=== PATIENT | male | born 1995 | race Caucasian/White ===

== ENCOUNTER 2025-01-11 20:41 | Emergency (ER) | payer OTHER ==
[~2025-01-11] VITALS: Ht 165.1 cm; Wt 114.0 kg
[2025-01-11 20:45] VITALS: BP 120/80; PULSE 101; RESP 16; TEMP 37.1; O2SAT 99
== END 2025-01-11 22:59 | disposition left against medical advice (07) ==
LOC: ER 20:41
DX: F10.129 Alcohol abuse with intoxication, unspecified (principal); Z53.21 Procedure and treatment not carried out due to patient leaving prior to being seen by health care provider; Y90.9 Presence of alcohol in blood, level not specified